=== PATIENT | female | born 1940 | race Native Hawaiian/Other Pacific Islander ===

== ENCOUNTER 2017-09-26 20:27 | Inpatient (IN) | payer OTHER ==
[~2017-09-26] VITALS: Ht 152.4 cm; Wt 52.2 kg
--- NOTE | 2017-09-26 20:40 | NUR ---
Patient BIB private ambulance from [facility] for Medical Clearance and admission to [facility]. Patient arrives with 5150 hold for DTS. Per hold, patient made a high lethality/high intent suicide attempt by overdose on psychotropic medications in the setting of worsening depression x 3 years and feeling as though she were a burden on her family. Per medical record patient overdosed on ambien. Patient presents A/O x2, mandarin uruguayan speaking only. Son is at bedside providing translation. To room 4B.
[2017-09-26] MEDS ORDERED: IPRA3AMP IH (20:45)
[2017-09-26] MEDS ORDERED: ASPI-605 PO (20:45)
[2017-09-26] MEDS ORDERED: VENL75CA62 PO (20:45)
[2017-09-26] MEDS ORDERED: BACI1CAP6 PO (20:45)
[2017-09-26] MEDS ORDERED: VALS160T24 PO (20:45)
[2017-09-26] MEDS ORDERED: QUET25TA PO (20:45)
[2017-09-26] MEDS ORDERED: MULT1TAB73 PO (20:45)
[2017-09-26] MEDS ORDERED: BUDE1AMP IH (20:45)
[2017-09-26] MEDS ORDERED: FENO145T PO (20:45)
[2017-09-26] MEDS ORDERED: ATOR20TA PO (20:45)
[2017-09-26] MEDS ORDERED: LABE300T PO (20:45)
[2017-09-26] MEDS ORDERED: AMLO10TA2 PO (20:45)
--- NOTE | 2017-09-26 21:15 | NUR ---
Pt. admitted to [facility], under care of Dr. Martinez Belongs List completed
[2017-09-26] MEDS ORDERED: MAGNESIUM HYDROXIDE 30 ML LIQUID UDC PO PRN (22:15)
[2017-09-26] MEDS ORDERED: ACETAMINOPHEN 325 MG TABLET PO PRN (22:15)
[2017-09-26] MEDS ORDERED: TEMAZEPAM 7.5 MG CAPSULE PO PRN (22:15)
[2017-09-26] MEDS ORDERED: MAG HYDROX/AL HYDROX/SIMETH 30 ML LIQUID UDC PO PRN (22:15)
--- NOTE | 2017-09-26 22:30 | NUR ---
ADMISSION NOTE: 77 Y.O (MANDARIN SPEAKING) FEMALE BROUGHT TO MHU FROM ER VIA GURNEY, ACCOMPANIED BY ER STAFF AND Pt's 2 SONS. Pt ON A 5150 FOR DTS. ACCORDING TO THE HOLD, Pt ATTEMPTED SUICIDE BY OD ON AN UNKNOWN NUMBER OF PSYCHOTROPIC PILLS. Pt HAD WORSENING DEPRESSION OVER 3 YEARS, AND FELT LIKE A BURDEN TO HER FAMILY. SUICIDE ATTEMPT RESULTED IN HOSPITALIZATION FOR AMS. FOLLOWING ATTEMPT, Pt ENDORSED ONGOING DEPRESSIVE SYMPTOMS AND SUICIDAL IDEATION. Pt IS FELT TO BE AT SIGNIFICANTLY ELEVATED RISK FOR SELF HARM, AND REQUIRES PSYCHIATRIC ADMISSION FOR SAFETY. Pt APPEARS TO REFLECT WHAT IS ON THE HOLD, RN CONCURS WITH HOLD. PATIENT RIGHTS HANDBOOK AND ADVISEMENT GIVEN TO Pt. 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 UPON FACE TO FACE EVALUATION, Pt WAS INITIALLY CALM AND COOPERATIVE, Pt ANSWERED ASSESSMENT QUESTIONS, AND ADMITTED THAT SHE TRIED TO KILL HERSELF BY OD ON MEDICATIONS BECAUSE SHE IS STILL GRIEVING THE OF HER 3 YEARS AGO. Pt STATED SHE FELT REMORSEFUL, AND SAID SHE WOULD NEVER DO IT AGAIN, THAT SHE WAS EMBARRASSED. Pt STATED SHE WAS HAVING VISUAL HALLUCINATIONS THAT 2 "DARK MEN WERE TRYING TO KIDNAP AND HURT" HER, BUT THAT WAS ONLY AFTER SHE HAD EXPERIENCED INSOMNIA, AND 4 DAYS OF NO SLEEP. WHEN Pt FOUND OUT THAT SHE HAD TO STAY ON THE UNIT WITHOUT HER FAMILY, SHE BECAME ANGRY, AGITATED, FEARFUL, ANXIOUS, AND THREATENING TO KILL HERSELF IF HER SONS LEAVE. Pt STATED THAT HER SONS "DON'T LOVE ME, I AM NOT THEIR MOM ANYMORE, THEY ARE JUST GOING TO LEAVE ME HERE TO ". UNRELIABLE FOR SAFETY AT THIS TIME. Pt IS HYPERVERBAL AND EXHIBITS PRESSURED SPEECH. Pt STATED SHE IS FEARFUL AND SCARED TO BE HERE "WITH CRAZY PEOPLE, I AM NOT CRAZY". Pt ADMINISTERED KLONOPIN 0.5mg AFTER SOME PROMPTING, WITH MODERATE EFFECT, Pt CALMED AFTER 30 MINUTES. Pt's SON ADRIANA SIGNED THE PAPERWORK ON BEHALF OF THE Pt, UNIT RULES AND LPS GUIDELINES EXPLAINED IN DETAIL TO Pt AND THE FAMILY, FAMILY VERBALIZED UNDERSTANDING, Pt NEEDS REINFORCEMENT. Pt PLACED IN TAMIA CHAIR AND KEPT NEAR NURSE'S STATION. Pt AMBULATORY WITH FWW, APPEARS STEADY. Pt NOTED TO RTIS, AND OBSERVED TALKING TO THE DUDLEY INTERMITTENTLY. DR DORANTES AND DR SHERMAN NOTIFIED OF ADMISSION, ORDERS RECEIVED, MEDS RECONCILED. Pt HAS A MEDICAL H/O ASTHMA, HTN, TB, ANXIETY, DEPRESSION, INSOMNIA, GASTRITIS, DJD, CKD, GERD, HLD, FALLS, CVA, AND HEARING LOSS, NKA. BROKEN BLISTER NOTED TO (R) THUMB, (R) HAND NOTED TO BE CONTRACTED WITH 5TH DIGIT MISSING, Pt REFUSED ALL PHOTOS. A+Ox2, VS STABLE, DENIES PAIN. IN NO ACUTE PHYSICAL DISTRESS.
[2017-09-26] MEDS: CLONAZEPAM 0.5 MG TABLET PO PRN (22:57)
[2017-09-26] MEDS ORDERED: CLONAZEPAM 0.5 MG TABLET ONE (23:10)
[2017-09-26 23:40] VITALS: BP 144/82
[2017-09-27 01:13] LABS: *BILIRUBIN,URIN NEGATIVE (NEGATIVE); *BLOOD, URINE NEGATIVE (NEGATIVE); *CLARITY,URINE CLEAR (CLEAR); *COLOR,URINE STRAW (YELLOW); *KETONES,URINE NEGATIVE (NEGATIVE); *PROTEIN,URINE 1+ (NEGATIVE); *UROBILINOGEN,URINE 0.2 E.U./dl (NORMAL); LEUKOCYTE ESTERASE ,URINE NEGATIVE (NEGATIVE); NITRITE, URINE NEGATIVE (NEGATIVE); UGLUCOSE NEGATIVE (NEGATIVE)
[2017-09-27 01:27] LABS: BACTERIA,URINE FEW /HPF (NONE SEEN); RBC,URINE NONE SEEN /HPF (0-3); SQUAMOUS EPITHELIAL CELL,UR FEW /HPF (NONE SEEN); WBC,URINE 0-3 /HPF (0-3)
[2017-09-27 07:30] VITALS: BP 164/76
[2017-09-27] MEDS: CLONAZEPAM 0.5 MG TABLET PO PRN (07:57)
[2017-09-27] MEDS: MULTIVITAMINS,THERAPEUTIC TABLET PO SCH (08:01)
[2017-09-27] MEDS: FENOFIBRATE NANOCRYSTALLIZED 145 MG TABLET PO SCH (08:01)
[2017-09-27] MEDS: ASPIRIN EC 81 MG TABLET.DR PO SCH (08:01)
[2017-09-27] MEDS: VALSARTAN 80 MG TABLET PO SCH ×2 (08:02→21:00)
[2017-09-27] MEDS: AMLODIPINE 10 MG TABLET PO SCH (08:02)
[2017-09-27] MEDS: LABETALOL HCL 200 MG TABLET PO SCH ×2 (08:27→17:00)
[2017-09-27 08:50] VITALS: BP 164/78
--- NOTE | 2017-09-27 08:58 | NUR ---
AM VS 164/76, HR 116, SCHEDULED LABETALOL, NORVASC, AND DIOVAN ADMINISTERED ORDERED. RE-CHECK 45 MINUTES LATER RESULTED IN BP OF 164/78, HR 90. Pt ALSO WHEEZING AUDIBLY WHILE BREATHING, AWAITING RECONCILIATION OF ALBUTEROL AND PULMICORT. [address] HOUSE THROUGH [employer], AWAITING CALL BACK..
[2017-09-27] MEDS ORDERED: VALSARTAN 160 MG TABLET PO SCH (09:00)
[2017-09-27] MEDS ORDERED: IPRATROPIUM BROMIDE 0.5 MG/2.5 ML NEBU NEB PRN ×2 (10:00→10:45)
[2017-09-27] MEDS ORDERED: ALBUTEROL SULFATE 1.25 MG/3 ML NEBU NEB PRN (10:00)
[2017-09-27] MEDS ORDERED: CLONIDINE HCL 0.1 MG TABLET PO PRN (10:30)
[2017-09-27] MEDS ORDERED: ALBUTEROL SULFATE 2.5 MG/3 ML NEBU NEB PRN (10:45)
[2017-09-27] MEDS ORDERED: FLUTICASONE/SALMETEROL 250/50 INHALER INH SCH (10:45)
[2017-09-27] MEDS: OMEGA-3 FATTY ACIDS/FISH OIL CAPSULE PO SCH ×2 (10:52→21:36)
[2017-09-27] MEDS: VENLAFAXINE XR 75 MG CAP.SR.24H PO SCH (10:52)
[2017-09-27] MEDS: FLUTICASONE/VILANTEROL 1 EACH BLST.W.DEV INH SCH (11:00)
[2017-09-27 11:04] VITALS: BP 116/69
--- NOTE | 2017-09-27 11:31 | NUR ---
BREATHING Tx COMPLETE WITH RT, AND EFFECTIVE. Pt NO LONGER WHEEZING, COUGHING, OR EXPERIENCING SOB. BREATHING NOW EVEN AND UNLABORED, O2 SAT 95% RA.
[2017-09-27] MEDS ORDERED: INSULIN REGULAR, HUMAN 300 UNIT/3 ML VIAL SQ PRN (16:30)
[2017-09-27] MEDS ORDERED: DEXTROSE 50% 50 ML DISP.SYRIN IV PRN (16:30)
[2017-09-27] MEDS: BLOOD SUGAR DIAGNOSTIC 1 EACH STRIP VI SCH ×2 (17:20→21:36)
[2017-09-27] MEDS ORDERED: QUETIAPINE FUMARATE 25 MG TABLET PO SCH (21:00)
[2017-09-27] MEDS: ATORVASTATIN 20 MG TABLET PO SCH (21:37)
[2017-09-27 23:48] VITALS: BP 125/55
[2017-09-28] MEDS: BLOOD SUGAR DIAGNOSTIC 1 EACH STRIP VI SCH ×4 (06:52→21:00)
[2017-09-28 07:30] VITALS: BP 151/83
[2017-09-28 07:55] LABS: BASOPHILS # (AUTO) 0.1 K/uL (0.0-8.0); BASOPHILS % (AUTO) 1.2 % (0.0-2.0); EOSINOPHILS # (AUTO) 0.4 K/uL (0.0-0.7); EOSINOPHILS % (AUTO) 5.1 % (0.0-7.0); HEMATOCRIT 37.9 % (31.2-41.9); HEMOGLOBIN 12.6 g/dL (10.9-14.3); LYMPHOCYTES # (AUTO) 1.6 K/uL (20.0-40.0); LYMPHOCYTES % (AUTO) 21.9 % (20.5-51.5); MEAN CORPUSCULAR HEMOGLOBIN 28.8 uug (24.7-32.8); MEAN CORPUSCULAR HGB CONC 33 g/dL (32.3-35.6); MEAN CORPUSCULAR VOLUME 87.1 fL (75.5-95.3); MONOCYTES # (AUTO) 0.6 K/uL (2.0-10.0); NEUTROPHILS # (AUTO) 4.6 K/uL (1.8-8.9); NEUTROPHILS % (AUTO) 63.8 % (38.5-71.5); PLATELET COUNT (AUTO) 259 K/uL (179-408); RED BLOOD CELL COUNT(AUTO) 4.35 MIL/uL (3.63-4.92); WHITE BLOOD COUNT (AUTO) 7.2 K/uL (3.8-11.8)
[2017-09-28 08:00] LABS: ALANINE AMINOTRANSFERASE 40 U/L (14-59); ALKALINE PHOSPHATASE 53 U/L (50-136); ASPARTATE AMINOTRANSFERASE 22 U/L (15-37); BILIRUBIN,TOTAL 0.4 mg/dL (0.2-1.0); CARBON DIOXIDE 27 mmol/L (21-32); CHLORIDE 106 mmol/L (98-107); CREATININE 0.9 mg/dL (0.6-1.3); GLUCOSE 89 mg/dL (74-106); MAGNESIUM 1.9 mg/dL (1.8-2.4); PHOSPHOROUS 3.7 mg/dL (2.5-4.9); POTASSIUM 3.9 mmol/L (3.5-5.1); TOTAL PROTEIN, SERUM 6.5 g/dL (6.4-8.2); UREA NITROGEN, BLOOD 37 mg/dL (7-18)
[2017-09-28 08:52] LABS: THYROID STIMULATING HORMONE 1.195 mIU/mL (0.358-3.740)
[2017-09-28] MEDS: FENOFIBRATE NANOCRYSTALLIZED 145 MG TABLET PO SCH (08:54)
[2017-09-28] MEDS: MULTIVITAMINS,THERAPEUTIC TABLET PO SCH (08:55)
[2017-09-28] MEDS: VALSARTAN 80 MG TABLET PO SCH ×2 (08:55→21:00)
[2017-09-28] MEDS: ASPIRIN EC 81 MG TABLET.DR PO SCH (08:55)
[2017-09-28] MEDS: LABETALOL HCL 200 MG TABLET PO SCH ×2 (08:55→17:03)
[2017-09-28] MEDS: OMEGA-3 FATTY ACIDS/FISH OIL CAPSULE PO SCH ×2 (08:55→21:10)
[2017-09-28] MEDS: VENLAFAXINE XR 75 MG CAP.SR.24H PO SCH (08:55)
[2017-09-28] MEDS: AMLODIPINE 10 MG TABLET PO SCH (08:55)
[2017-09-28] MEDS: FLUTICASONE/VILANTEROL 1 EACH BLST.W.DEV INH SCH (08:59)
[2017-09-28 16:33] VITALS: BP 123/65
[2017-09-28 20:43] VITALS: BP 100/51
[2017-09-28] MEDS ORDERED: QUETIAPINE FUMARATE 25 MG TABLET PO SCH (21:00)
[2017-09-28] MEDS: ATORVASTATIN 20 MG TABLET PO SCH (21:10)
[2017-09-29] MEDS: BLOOD SUGAR DIAGNOSTIC 1 EACH STRIP VI SCH (06:34)
[2017-09-29 07:30] VITALS: BP 125/77
[2017-09-29] MEDS: FLUTICASONE/VILANTEROL 1 EACH BLST.W.DEV INH SCH (08:12)
[2017-09-29] MEDS: OMEGA-3 FATTY ACIDS/FISH OIL CAPSULE PO SCH (08:26)
[2017-09-29] MEDS: MULTIVITAMINS,THERAPEUTIC TABLET PO SCH (08:26)
[2017-09-29] MEDS: ASPIRIN EC 81 MG TABLET.DR PO SCH (08:26)
[2017-09-29] MEDS: VALSARTAN 80 MG TABLET PO SCH (08:27)
[2017-09-29] MEDS: FENOFIBRATE NANOCRYSTALLIZED 145 MG TABLET PO SCH (08:27)
[2017-09-29] MEDS: AMLODIPINE 10 MG TABLET PO SCH (08:27)
[2017-09-29 08:28] VITALS: BP 125/77
[2017-09-29] MEDS: LABETALOL HCL 200 MG TABLET PO SCH (08:28)
[2017-09-29] MEDS ORDERED: VENLAFAXINE XR 75 MG CAP.SR.24H PO SCH (09:00)
--- NOTE | 2017-09-29 09:08 | NUR ---
DC Note: Patient will be discharged to Home with her son [[address] [place] [address]] via private transportation at 10:30 am. Spoke with patient's son, Garo ([phone]) who is willing to provide transportation and is aware and agreeable with discharge plans. Patient is aware and agreeable with discharge plans. Patient will follow-up with her Primary Care Physician, Dr. John Scanlon [[address] [place] [address]; ] and was given outpatient psychiatric referrals to Ethan Perez [[address] [facility] [address]; ]. [employer] will follow-up with family and patient regarding Psychiatrist Referral through patients [employer]. Addendum: 09/29/17 at 0946 by MAIRA GROSS Patient will follow-up with her outpatient psychiatrist Dr. Lamont Garcia [[address] [place] [address]; ].
--- NOTE | 2017-09-29 09:41 | NUR ---
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
--- NOTE | 2017-09-29 11:00 | NUR ---
[facility]: Nursing Notes: Discharge Notes: Patient is awake and responding to her name, cooperative with nursing care, compliant with her medications, A/Ox3, denies any SI/HI, denies any AH/VH, denies any pain or discomfort, denies any SOB, discharge home with her son Garo ([phone]) at [address] [facility], [place] [address], who is willing to provide transportation and is aware and agreeable with discharge plans. Patient is aware and agreeable with discharge plans. Patient will follow-up with her Primary Care Physician, Dr. John Scanlon [[address] [place] [address]; ] and was given [facility] [[address] [facility] [address]; ]. Patient will follow-up with her outpatient psychiatrist Dr. Lamont Garcia [[address] [place] [address]; ].
== END 2017-09-29 11:00 | disposition home or self-care (01) | DRG 885 ==
LOC: ER 20:27 → GPS 21:52
PROVIDERS: ADMIT Psychiatry & Neurology Psychiatry; ATTEND Internal Medicine
DX: F33.2 Major depressive disorder, recurrent severe without psychotic features (principal); N18.9 Chronic kidney disease, unspecified; E11.22 Type 2 diabetes mellitus with diabetic chronic kidney disease; E78.5 Hyperlipidemia, unspecified; T43.9 Poisoning by, adverse effect of and underdosing of unspecified psychotropic drug; I12.9 Hypertensive chronic kidney disease with stage 1 through stage 4 chronic kidney disease, or unspecified chronic kidney disease; Z86.11 Personal history of tuberculosis; Z86.73 Personal history of transient ischemic attack (TIA), and cerebral infarction without residual deficits; M19.90 Unspecified osteoarthritis, unspecified site; J45.909 Unspecified asthma, uncomplicated; Z79.899 Other long term (current) drug therapy; Z79.82 Long term (current) use of aspirin; G31.84 Mild cognitive impairment of uncertain or unknown etiology; Z87.19 Personal history of other diseases of the digestive system
CPT/HCPCS: 36415; 83735; 84100; 84443; 85025; 87086; 94640; 94664; A4663; J1815; J3590